=== PATIENT | female | born 1940 | race Hispanic/Latino ===

== ENCOUNTER 2021-12-09 12:27 | Inpatient (IN) | payer MEDICARE, BC ==
[2021-12-09 13:24] LABS: #Monocytes 0.8 thou/uL (0.11-0.59); #Neutrophils 13.1 thou/uL (1.40-6.50); %Eosinophils 0.1 % (0.0-10.0); %Lymphocytes 6.8 % (21.0-51.0); %Monocytes 5.1 % (0.0-10.0); %Neutrophils 87.9 % (42.0-75.0); Hemoglobin 16.3 g/dL (12.0-16.0); Mean Corpuscular HGB CONC 31.1 g/dL (32.0-36.0); Mean Corpuscular Hemoglobin 31.1 pg (27.0-31.0); Mean Platelet Volume 8.9 fL (7.4-10.4); Platelet Count 152 thou/uL (130-400); RBC Distribution Width 13.8 % (11.5-14.5); Red Blood Cell (RBC) Count 5.26 mill/uL (4.20-5.40); White Blood Cell (WBC) Count 14.8 thou/uL (4.8-10.8)
[2021-12-09 13:44] LABS: ALT (SGPT) 9 U/L (8-55); AST (SGOT) 21 U/L (5-34); Albumin 3.3 g/dL (3.4-4.8); Alkaline Phosphatase 72 U/L (40-110); Anion Gap 18 mmol/L (10-20); BUN (Urea Nitrogen) 36 mg/dL (9.8-20.1); Calc. Creatinine Clearance 0 mL/min (70-130); Calcium 9.2 mg/dL (7.8-10.44); Carbon Dioxide 25 mmol/L (23-31); Chloride 100 mmol/L (98-107); Estimated GFR 48; Globulin 3.8 g/dL (2.4-3.5); Glucose 206 mg/dL (83-110); Potassium 3.7 mmol/L (3.5-5.1); Protein, Total 7.1 g/dL (5.8-8.1); Sodium 139 mmol/L (136-145)
[2021-12-09] MEDS ORDERED: Cefepime 2 GM VIAL ONE (14:51)
[2021-12-09] MEDS ORDERED: Vancomycin 1 GM/200 ML BAG ONE (15:03)
[2021-12-09] MEDS ORDERED: Ondansetron ODT 4 MG TAB PO PRN (15:39)
[2021-12-09 17:04] LABS: SARS-CoV-2 NAA Rapid Test DETECTED (NotDetected)
[2021-12-09] MEDS: Lactated Ringer's 1,000 ML IV SCH (17:34)
[2021-12-09] MEDS: metroNIDAZOLE 500 MG in Premix Bag 1 BAG IVPB SCH ×2 (18:42→23:24)
[2021-12-09] MEDS ORDERED: Dexamethasone 6 MG in Sodium Chloride 0.9% 50 ML IVPB SCH (18:45)
[2021-12-09] MEDS ORDERED: Dexamethasone 4 mg/ml Vial SLOW IVP SCH (19:15)
[2021-12-09] MEDS: Gabapentin 300 MG CAP PO SCH (20:48)
[2021-12-10] MEDS ORDERED: Cefepime 2 GM in Sodium Chloride 0.9% 100 ML IVPB SCH (03:00)
[2021-12-10 04:04] LABS: Bacteria/HPF None Seen HPF (None Seen); Bilirubin Negative (Negative); Blood, Urine Negative (Negative); Clarity Clear (Clear); Glucose, Urine (Dipstick) Normal (Negative); Ketone, Urine Negative (Negative); Leukocyte 75 Leu/uL (Negative); Nitrite Negative (Negative); Protein, Urine (Dipstick) 20 mg/dL (Neg-Trace); Specific Gravity, Urine 1.021 (1.002-1.036); Squamous Epithelial 0-3 HPF (0-3); Urobilinogen Normal mg/dL (Less than 2); pH, Urine 5.5 (5.0-9.0)
[2021-12-10 04:05] LABS: Urine Culture Reflex Yes Yes
[2021-12-10] MEDS ORDERED: Cefepime 2 GM VIAL IVPB SCH (05:00)
[2021-12-10 05:35] LABS: #Lymphocytes 0.8 thou/uL (1.20-3.40); #Monocytes 0.3 thou/uL (0.11-0.59); #Neutrophils 18.3 thou/uL (1.40-6.50); %Lymphocytes 4.2 % (21.0-51.0); %Monocytes 1.7 % (0.0-10.0); %Neutrophils 94.1 % (42.0-75.0); Hemoglobin 14.9 g/dL (12.0-16.0); Mean Corpuscular Hemoglobin 30.6 pg (27.0-31.0); Mean Platelet Volume 8.6 fL (7.4-10.4); Platelet Count 157 thou/uL (130-400); RBC Distribution Width 13.7 % (11.5-14.5); Red Blood Cell (RBC) Count 4.89 mill/uL (4.20-5.40); White Blood Cell (WBC) Count 19.4 thou/uL (4.8-10.8)
[2021-12-10] MEDS: Cefepime 2 GM in Sodium Chloride 0.9% 100 ML IVPB SCH ×2 (05:38→17:41)
[2021-12-10] MEDS: metroNIDAZOLE 500 MG in Premix Bag 1 BAG IVPB SCH ×3 (05:40→17:44)
[2021-12-10 05:57] LABS: ALT (SGPT) 8 U/L (8-55); AST (SGOT) 17 U/L (5-34); Alkaline Phosphatase 69 U/L (40-110); Anion Gap 16 mmol/L (10-20); BUN (Urea Nitrogen) 32 mg/dL (9.8-20.1); Bilirubin, Total 2.7 mg/dL (0.2-1.2); Calc. Creatinine Clearance 52 mL/min (70-130); Calcium 8.9 mg/dL (7.8-10.44); Carbon Dioxide 23 mmol/L (23-31); Chloride 106 mmol/L (98-107); Estimated GFR 69; Globulin 3.8 g/dL (2.4-3.5); Glucose 142 mg/dL (83-110); Potassium 3.8 mmol/L (3.5-5.1); Protein, Total 6.8 g/dL (5.8-8.1); Sodium 141 mmol/L (136-145)
[2021-12-10] MEDS: Lactated Ringer's 1,000 ML IV SCH ×3 (06:06→22:21)
[2021-12-10] MEDS: Enoxaparin Sodium 40 MG/0.4 ML SYRINGE SC SCH (09:03)
[2021-12-10] MEDS: Dexamethasone 4 mg/ml Vial SLOW IVP SCH (09:04)
[2021-12-10] MEDS: Atorvastatin Calcium 10 MG TAB PO SCH (09:11)
[2021-12-10] MEDS: Gabapentin 300 MG CAP PO SCH ×3 (09:13→22:21)
[2021-12-10] MEDS ORDERED: Lactated Ringer's 500 ML IV SCH (11:00)
[2021-12-10] MEDS: Vancomycin 1 GM in Premix Bag 1 BAG IVPB SCH (15:21)
[2021-12-10] MEDS ORDERED: Dexamethasone 6 MG in Sodium Chloride 0.9% 50 ML IVPB SCH (18:00)
[2021-12-11] MEDS: metroNIDAZOLE 500 MG in Premix Bag 1 BAG IVPB SCH ×4 (00:48→20:34)
[2021-12-11] MEDS: Cefepime 2 GM in Sodium Chloride 0.9% 100 ML IVPB SCH ×2 (05:30→20:00)
[2021-12-11 06:58] LABS: ALT (SGPT) 8 U/L (8-55); AST (SGOT) 16 U/L (5-34); Albumin 2.5 g/dL (3.4-4.8); Alkaline Phosphatase 59 U/L (40-110); Anion Gap 15 mmol/L (10-20); BUN (Urea Nitrogen) 42 mg/dL (9.8-20.1); Bilirubin, Total 1.5 mg/dL (0.2-1.2); Calc. Creatinine Clearance 56 mL/min (70-130); Calcium 8.6 mg/dL (7.8-10.44); Carbon Dioxide 20 mmol/L (23-31); Chloride 109 mmol/L (98-107); Estimated GFR 75; Globulin 3.2 g/dL (2.4-3.5); Glucose 166 mg/dL (83-110); Potassium 3.8 mmol/L (3.5-5.1); Protein, Total 5.7 g/dL (5.8-8.1); Sodium 140 mmol/L (136-145)
[2021-12-11 07:35] LABS: Hemoglobin 16.1 g/dL (12.0-16.0); Mean Corpuscular Hemoglobin 29.6 pg (27.0-31.0); Mean Corpuscular Volume 98.8 fL (78.0-98.0); Mean Platelet Volume 9.3 fL (7.4-10.4); Platelet Count 129 thou/uL (130-400); RBC Distribution Width 13.8 % (11.5-14.5); Red Blood Cell (RBC) Count 5.44 mill/uL (4.20-5.40); White Blood Cell (WBC) Count 18.7 thou/uL (4.8-10.8)
[2021-12-11 08:13] LABS: #Eosinphils 0.1 thou/uL (0.0-0.7); #Lymphocytes 0.9 thou/uL (1.20-3.40); #Monocytes 0.6 thou/uL (0.11-0.59); #Neutrophils 17.1 thou/uL (1.40-6.50); %Eosinophils 0.3 % (0.0-10.0); %Monocytes 3.4 % (0.0-10.0); %Neutrophils 91.2 % (42.0-75.0); Band 24 % (5-11); Burr Cells SLIGHT = 2-5 cells (100X) (0-1/hpf); Lymphocytes 4 % (21-51); MDiff Complete? YES; Monocytes 4 % (0-10); Neutrophil 68 % (42-75); Platelet Morphology Comment Appears Decreased; Polychromasia SLIGHT = 2-3 cells (100X) (0-2/hpf); RBC Morphology Normal
[2021-12-11] MEDS: Lactated Ringer's 1,000 ML IV SCH ×2 (09:40→17:23)
[2021-12-11] MEDS: Atorvastatin Calcium 10 MG TAB PO SCH (09:40)
[2021-12-11] MEDS: Enoxaparin Sodium 40 MG/0.4 ML SYRINGE SC SCH (09:41)
[2021-12-11] MEDS: Gabapentin 300 MG CAP PO SCH ×3 (09:41→20:35)
[2021-12-11] MEDS: Dexamethasone 4 mg/ml Vial SLOW IVP SCH (09:41)
[2021-12-11] MEDS ORDERED: Glycopyrrolate 0.2 MG/ML 5 ML SYRINGE ONE (10:07)
[2021-12-11] MEDS ORDERED: PROPOFOL 200 MG/20 ML VIAL ONE (10:07)
[2021-12-11] MEDS ORDERED: ePHEDrine Sulfate 50 MG/10 ML VIAL ONE (10:07)
[2021-12-11] MEDS ORDERED: fentaNYL Citrate/PF 100 MCG/2 ML SYRINGE ONE (10:13)
[2021-12-11] MEDS ORDERED: Famotidine/PF 20 mg/2ml Vial ONE (10:13)
[2021-12-11] MEDS ORDERED: Propofol 500 MG/50 ML VIAL ONE ×2 (10:14→10:15)
[2021-12-11] MEDS ORDERED: Ondansetron HCl/PF 4 MG/2 ML Vial IVP PRN (11:04)
[2021-12-11] MEDS ORDERED: Promethazine HCl 25 MG/ML VIAL IVPB PRN (11:04)
[2021-12-11] MEDS ORDERED: Fentanyl 100 MCG/2 ML VIAL ONE (12:01)
[2021-12-11 14:33] LABS: Vancomycin, Trough 12.9 ug/mL
[2021-12-11] MEDS: Vancomycin 1 GM in Premix Bag 1 BAG IVPB SCH (15:03)
[2021-12-12] MEDS: metroNIDAZOLE 500 MG in Premix Bag 1 BAG IVPB SCH ×5 (00:08→23:12)
[2021-12-12] MEDS: Lactated Ringer's 1,000 ML IV SCH ×2 (04:18→15:35)
[2021-12-12] MEDS: Cefepime 2 GM in Sodium Chloride 0.9% 100 ML IVPB SCH ×2 (05:21→17:00)
[2021-12-12 07:01] LABS: Band 1 % (5-11); Hemoglobin 16.2 g/dL (12.0-16.0); Hypochromia SLIGHT = 6-15 cells (100X) (0-5/hpf); Lymphocytes 9 % (21-51); MDiff Complete? YES; Macrocytosis MODERATE=16-30 cells (100X) (0-5/hpf); Mean Corpuscular HGB CONC 30.1 g/dL (32.0-36.0); Mean Corpuscular Hemoglobin 30.7 pg (27.0-31.0); Mean Platelet Volume 9.3 fL (7.4-10.4); Neutrophil 90 % (42-75); Ovalocytes SLIGHT = 2-5 cells (100X) (0-1/hpf); Platelet Count 140 thou/uL (130-400); Platelet Morphology Comment Appears Adequate; Polychromasia SLIGHT = 2-3 cells (100X) (0-2/hpf); Red Blood Cell (RBC) Count 5.29 mill/uL (4.20-5.40); White Blood Cell (WBC) Count 21.1 thou/uL (4.8-10.8)
[2021-12-12] MEDS: Dexamethasone 4 mg/ml Vial SLOW IVP SCH (08:41)
[2021-12-12] MEDS: Atorvastatin Calcium 10 MG TAB PO SCH (08:42)
[2021-12-12] MEDS: Gabapentin 300 MG CAP PO SCH ×3 (08:42→20:46)
[2021-12-12] MEDS: Enoxaparin Sodium 40 MG/0.4 ML SYRINGE SC SCH (08:43)
[2021-12-12] MEDS: Vancomycin 1 GM in Premix Bag 1 BAG IVPB SCH (15:35)
[2021-12-12 20:29] LABS: Albumin 2.6 g/dL (3.4-4.8)
[2021-12-12 20:30] LABS: Chloride 108 mmol/L (98-107); Potassium 4.1 mmol/L (3.5-5.1); Sodium 141 mmol/L (136-145)
[2021-12-12 20:31] LABS: Calcium 8.7 mg/dL (7.8-10.44); Glucose 169 mg/dL (83-110)
[2021-12-12 20:32] LABS: Globulin 2.6 g/dL (2.4-3.5); Protein, Total 5.2 g/dL (5.8-8.1)
[2021-12-12 20:33] LABS: Anion Gap 9 mmol/L (10-20); Carbon Dioxide 28 mmol/L (23-31)
[2021-12-12 20:34] LABS: Alkaline Phosphatase 56 U/L (40-110); Bilirubin, Total 1.3 mg/dL (0.2-1.2)
[2021-12-12 20:35] LABS: Calc. Creatinine Clearance 67 mL/min (70-130); Estimated GFR 76
[2021-12-12 20:36] LABS: BUN (Urea Nitrogen) 40 mg/dL (9.8-20.1)
[2021-12-12 20:37] LABS: AST (SGOT) 18 U/L (5-34)
[2021-12-12 20:38] LABS: ALT (SGPT) 10 U/L (8-55)
[2021-12-13] MEDS: Lactated Ringer's 1,000 ML IV SCH (03:17)
[2021-12-13] MEDS: Cefepime 2 GM in Sodium Chloride 0.9% 100 ML IVPB SCH ×2 (05:19→18:53)
[2021-12-13] MEDS: metroNIDAZOLE 500 MG in Premix Bag 1 BAG IVPB SCH ×4 (05:53→23:10)
[2021-12-13] MEDS: Gabapentin 300 MG CAP PO SCH ×3 (09:37→21:27)
[2021-12-13] MEDS: Atorvastatin Calcium 10 MG TAB PO SCH (09:37)
[2021-12-13] MEDS: Dexamethasone 4 mg/ml Vial SLOW IVP SCH (09:37)
[2021-12-13] MEDS: Enoxaparin Sodium 40 MG/0.4 ML SYRINGE SC SCH (09:38)
[2021-12-13] MEDS ORDERED: Furosemide 20 MG/2 ML VIAL SLOW IVP SCH (11:15)
[2021-12-13] MEDS: Acetaminophen 325 MG TAB PO PRN (11:37)
[2021-12-13] MEDS ORDERED: Morphine 2 MG/ML VIAL SLOW IVP SCH (12:00)
[2021-12-13] MEDS ORDERED: Iopamidol-370 76% 500 ML 1 ML ONE (13:06)
[2021-12-13 14:42] LABS: #Lymphocytes 0.5 thou/uL (1.20-3.40); #Monocytes 0.3 thou/uL (0.11-0.59); #Neutrophils 10.7 thou/uL (1.40-6.50); %Basophils 0.1 % (0.0-1.0); %Lymphocytes 4.3 % (21.0-51.0); %Monocytes 2.4 % (0.0-10.0); %Neutrophils 93.2 % (42.0-75.0); Hemoglobin 15.5 g/dL (12.0-16.0); Mean Corpuscular Hemoglobin 30.8 pg (27.0-31.0); Mean Corpuscular Volume 99.3 fL (78.0-98.0); Mean Platelet Volume 8.7 fL (7.4-10.4); Platelet Count 144 thou/uL (130-400); RBC Distribution Width 13.5 % (11.5-14.5); Red Blood Cell (RBC) Count 5.05 mill/uL (4.20-5.40); White Blood Cell (WBC) Count 11.5 thou/uL (4.8-10.8)
[2021-12-13 15:04] LABS: ALT (SGPT) 11 U/L (8-55); AST (SGOT) 21 U/L (5-34); Albumin 2.7 g/dL (3.4-4.8); Alkaline Phosphatase 58 U/L (40-110); Anion Gap 13 mmol/L (10-20); BUN (Urea Nitrogen) 37 mg/dL (9.8-20.1); Bilirubin, Total 1.6 mg/dL (0.2-1.2); Calc. Creatinine Clearance 67 mL/min (70-130); Calcium 8.8 mg/dL (7.8-10.44); Carbon Dioxide 24 mmol/L (23-31); Chloride 106 mmol/L (98-107); Estimated GFR 75; Globulin 3.2 g/dL (2.4-3.5); Glucose 157 mg/dL (83-110); Potassium 4.2 mmol/L (3.5-5.1); Protein, Total 5.9 g/dL (5.8-8.1); Sodium 139 mmol/L (136-145)
[2021-12-13] MEDS: Vancomycin 1 GM in Premix Bag 1 BAG IVPB SCH (16:22)
[2021-12-13] MEDS: Enoxaparin Sodium 80 MG/0.8 ML SYRINGE SC SCH (21:28)
[2021-12-14 04:52] LABS: #Lymphocytes 0.8 thou/uL (1.20-3.40); #Monocytes 0.7 thou/uL (0.11-0.59); #Neutrophils 10.6 thou/uL (1.40-6.50); %Eosinophils 0.1 % (0.0-10.0); %Lymphocytes 6.4 % (21.0-51.0); %Monocytes 5.9 % (0.0-10.0); %Neutrophils 87.7 % (42.0-75.0); Hemoglobin 14.2 g/dL (12.0-16.0); Mean Corpuscular HGB CONC 31.2 g/dL (32.0-36.0); Mean Corpuscular Hemoglobin 30.8 pg (27.0-31.0); Mean Corpuscular Volume 98.9 fL (78.0-98.0); Mean Platelet Volume 8.6 fL (7.4-10.4); Platelet Count 140 thou/uL (130-400); RBC Distribution Width 13.5 % (11.5-14.5); Red Blood Cell (RBC) Count 4.61 mill/uL (4.20-5.40); White Blood Cell (WBC) Count 12.1 thou/uL (4.8-10.8)
[2021-12-14 05:18] LABS: ALT (SGPT) 7 U/L (8-55); AST (SGOT) 16 U/L (5-34); Albumin 2.5 g/dL (3.4-4.8); Alkaline Phosphatase 51 U/L (40-110); Anion Gap 11 mmol/L (10-20); BUN (Urea Nitrogen) 37 mg/dL (9.8-20.1); Bilirubin, Total 1.4 mg/dL (0.2-1.2); Calc. Creatinine Clearance 71 mL/min (70-130); Calcium 8.5 mg/dL (7.8-10.44); Carbon Dioxide 26 mmol/L (23-31); Chloride 106 mmol/L (98-107); Estimated GFR 80; Globulin 2.6 g/dL (2.4-3.5); Glucose 151 mg/dL (83-110); Potassium 3.9 mmol/L (3.5-5.1); Protein, Total 5.1 g/dL (5.8-8.1); Sodium 139 mmol/L (136-145)
[2021-12-14] MEDS: Cefepime 2 GM in Sodium Chloride 0.9% 100 ML IVPB SCH ×2 (05:25→17:19)
[2021-12-14] MEDS: metroNIDAZOLE 500 MG in Premix Bag 1 BAG IVPB SCH ×4 (05:29→23:55)
[2021-12-14] MEDS: Dexamethasone 4 mg/ml Vial SLOW IVP SCH (10:26)
[2021-12-14] MEDS: Gabapentin 300 MG CAP PO SCH ×3 (10:27→20:58)
[2021-12-14] MEDS: Enoxaparin Sodium 80 MG/0.8 ML SYRINGE SC SCH ×2 (10:28→20:59)
[2021-12-14] MEDS: Atorvastatin Calcium 10 MG TAB PO SCH (10:28)
[2021-12-14] MEDS ORDERED: Furosemide 20 MG/2 ML VIAL SLOW IVP SCH (12:00)
[2021-12-14] MEDS ORDERED: Polyethylene Glycol 3350 17 GM Packet PO SCH (13:15)
[2021-12-14] MEDS: Docusate Sodium 100 MG/10 ML UDCUP PO SCH (20:59)
[2021-12-14] MEDS: Melatonin 3 MG TAB PO PRN (20:59)
[2021-12-15 04:39] LABS: #Monocytes 0.6 thou/uL (0.11-0.59); #Neutrophils 10.5 thou/uL (1.40-6.50); %Eosinophils 0.1 % (0.0-10.0); %Lymphocytes 8.2 % (21.0-51.0); %Monocytes 4.6 % (0.0-10.0); Hemoglobin 14.1 g/dL (12.0-16.0); Mean Corpuscular HGB CONC 31.5 g/dL (32.0-36.0); Mean Corpuscular Volume 98.6 fL (78.0-98.0); Mean Platelet Volume 8.7 fL (7.4-10.4); Platelet Count 157 thou/uL (130-400); RBC Distribution Width 13.4 % (11.5-14.5); Red Blood Cell (RBC) Count 4.55 mill/uL (4.20-5.40)
[2021-12-15 04:55] LABS: ALT (SGPT) 8 U/L (8-55); AST (SGOT) 21 U/L (5-34); Albumin 2.5 g/dL (3.4-4.8); Alkaline Phosphatase 49 U/L (40-110); Anion Gap 11 mmol/L (10-20); BUN (Urea Nitrogen) 36 mg/dL (9.8-20.1); Bilirubin, Total 1.5 mg/dL (0.2-1.2); Calc. Creatinine Clearance 74 mL/min (70-130); Calcium 8.4 mg/dL (7.8-10.44); Carbon Dioxide 30 mmol/L (23-31); Chloride 104 mmol/L (98-107); Estimated GFR 81; Globulin 2.7 g/dL (2.4-3.5); Glucose 160 mg/dL (83-110); Protein, Total 5.2 g/dL (5.8-8.1); Sodium 141 mmol/L (136-145)
[2021-12-15] MEDS: Cefepime 2 GM in Sodium Chloride 0.9% 100 ML IVPB SCH ×2 (05:45→16:57)
[2021-12-15] MEDS: metroNIDAZOLE 500 MG in Premix Bag 1 BAG IVPB SCH ×3 (05:46→16:57)
[2021-12-15] MEDS: Enoxaparin Sodium 80 MG/0.8 ML SYRINGE SC SCH ×3 (09:00→20:38)
[2021-12-15] MEDS ORDERED: Furosemide 20 MG/2 ML VIAL SLOW IVP SCH ×2 (10:00→16:00)
[2021-12-15] MEDS: Acetaminophen 325 MG TAB PO PRN (10:31)
[2021-12-15] MEDS: Docusate Sodium 100 MG/10 ML UDCUP PO SCH ×2 (10:32→20:38)
[2021-12-15] MEDS: Gabapentin 300 MG CAP PO SCH ×3 (10:32→20:38)
[2021-12-15] MEDS: Dexamethasone 4 mg/ml Vial SLOW IVP SCH (10:32)
[2021-12-15] MEDS: Atorvastatin Calcium 10 MG TAB PO SCH (10:33)
[2021-12-15] MEDS: Polyethylene Glycol 3350 17 GM Packet PO SCH (10:33)
[2021-12-15 14:27] LABS: Hemoglobin 13.8 g/dL (12.0-16.0)
[2021-12-15] MEDS: Furosemide 20 MG/2 ML VIAL SLOW IVP SCH (16:57)
[2021-12-15] MEDS: Melatonin 3 MG TAB PO PRN (20:38)
[2021-12-16] MEDS: metroNIDAZOLE 500 MG in Premix Bag 1 BAG IVPB SCH ×4 (00:54→17:36)
[2021-12-16] MEDS: Cefepime 2 GM in Sodium Chloride 0.9% 100 ML IVPB SCH ×2 (06:32→17:06)
[2021-12-16] MEDS: Gabapentin 300 MG CAP PO SCH ×3 (08:47→21:03)
[2021-12-16] MEDS: Dexamethasone 4 mg/ml Vial SLOW IVP SCH (08:47)
[2021-12-16] MEDS: Atorvastatin Calcium 10 MG TAB PO SCH (08:48)
[2021-12-16] MEDS: Docusate Sodium 100 MG/10 ML UDCUP PO SCH ×2 (08:48→21:03)
[2021-12-16] MEDS: Polyethylene Glycol 3350 17 GM Packet PO SCH (08:48)
[2021-12-16 09:05] LABS: #Lymphocytes 1.6 thou/uL (1.20-3.40); #Neutrophils 13.1 thou/uL (1.40-6.50); %Basophils 0.1 % (0.0-1.0); %Eosinophils 0.3 % (0.0-10.0); %Lymphocytes 10.2 % (21.0-51.0); %Monocytes 6.4 % (0.0-10.0); %Neutrophils 82.9 % (42.0-75.0); Hemoglobin 13.1 g/dL (12.0-16.0); Mean Corpuscular HGB CONC 30.8 g/dL (32.0-36.0); Mean Corpuscular Hemoglobin 30.6 pg (27.0-31.0); Mean Corpuscular Volume 99.4 fL (78.0-98.0); Mean Platelet Volume 8.5 fL (7.4-10.4); Platelet Count 158 thou/uL (130-400); RBC Distribution Width 13.2 % (11.5-14.5); Red Blood Cell (RBC) Count 4.29 mill/uL (4.20-5.40); White Blood Cell (WBC) Count 15.8 thou/uL (4.8-10.8)
[2021-12-16] MEDS: Enoxaparin Sodium 80 MG/0.8 ML SYRINGE SC SCH ×2 (09:18→21:03)
[2021-12-16 09:22] LABS: ALT (SGPT) 9 U/L (8-55); AST (SGOT) 21 U/L (5-34); Albumin 2.4 g/dL (3.4-4.8); Alkaline Phosphatase 45 U/L (40-110); Anion Gap 13 mmol/L (10-20); BUN (Urea Nitrogen) 41 mg/dL (9.8-20.1); Bilirubin, Total 1.1 mg/dL (0.2-1.2); Calc. Creatinine Clearance 72 mL/min (70-130); Calcium 8.4 mg/dL (7.8-10.44); Carbon Dioxide 27 mmol/L (23-31); Chloride 105 mmol/L (98-107); Estimated GFR 79; Globulin 2.9 g/dL (2.4-3.5); Glucose 132 mg/dL (83-110); Protein, Total 5.3 g/dL (5.8-8.1); Sodium 141 mmol/L (136-145)
[2021-12-16] MEDS ORDERED: Morphine 2 MG/ML VIAL SLOW IVP SCH (13:15)
[2021-12-16] MEDS: Furosemide 20 MG/2 ML VIAL SLOW IVP SCH (17:06)
[2021-12-16] MEDS: Melatonin 3 MG TAB PO PRN (21:03)
[2021-12-16] MEDS: Acetaminophen 325 MG TAB PO PRN (21:29)
[2021-12-17] MEDS: metroNIDAZOLE 500 MG in Premix Bag 1 BAG IVPB SCH ×4 (00:31→19:43)
[2021-12-17] MEDS ORDERED: Lactated Ringer's 500 ML IV SCH ×2 (01:30→04:45)
[2021-12-17 04:29] LABS: #Eosinphils 0.1 thou/uL (0.0-0.7); #Lymphocytes 2.1 thou/uL (1.20-3.40); #Monocytes 0.9 thou/uL (0.11-0.59); %Basophils 0.2 % (0.0-1.0); %Eosinophils 0.4 % (0.0-10.0); %Lymphocytes 14.7 % (21.0-51.0); %Monocytes 6.5 % (0.0-10.0); %Neutrophils 78.2 % (42.0-75.0); Hemoglobin 9.4 g/dL (12.0-16.0); Mean Corpuscular HGB CONC 32.8 g/dL (32.0-36.0); Mean Corpuscular Hemoglobin 32.4 pg (27.0-31.0); Mean Corpuscular Volume 98.9 fL (78.0-98.0); Mean Platelet Volume 8.2 fL (7.4-10.4); Platelet Count 162 thou/uL (130-400); RBC Distribution Width 13.1 % (11.5-14.5); White Blood Cell (WBC) Count 14.1 thou/uL (4.8-10.8)
[2021-12-17 04:41] LABS: ALT (SGPT) 9 U/L (8-55); AST (SGOT) 13 U/L (5-34); Alkaline Phosphatase 33 U/L (40-110); Anion Gap 12 mmol/L (10-20); BUN (Urea Nitrogen) 53 mg/dL (9.8-20.1); Bilirubin, Total 0.8 mg/dL (0.2-1.2); Calc. Creatinine Clearance 58 mL/min (70-130); Calcium 7.9 mg/dL (7.8-10.44); Carbon Dioxide 26 mmol/L (23-31); Chloride 106 mmol/L (98-107); Estimated GFR 61; Globulin 2.1 g/dL (2.4-3.5); Glucose 133 mg/dL (83-110); Potassium 3.6 mmol/L (3.5-5.1); Protein, Total 4.1 g/dL (5.8-8.1); Sodium 140 mmol/L (136-145)
[2021-12-17] MEDS ORDERED: Lactated Ringer's 1,000 ML IV SCH (07:15)
[2021-12-17] MEDS ORDERED: Xylocaine 1% w/ Epi 1:100K 10 ML VIAL ONE (09:17)
[2021-12-17] MEDS ORDERED: Fentanyl 100 MCG/2 ML VIAL SLOW IVP PRN (09:27)
[2021-12-17] MEDS ORDERED: Lidocaine 1% w/Epinephrine 1:200K 30 ML VIAL FS SCH ×2 (09:45→18:45)
[2021-12-17] MEDS: Polyethylene Glycol 3350 17 GM Packet PO SCH (10:15)
[2021-12-17] MEDS ORDERED: Hydrocortisone Sod Succ/PF 100 mg/2 ml Vial IVP SCH ×2 (10:15→13:15)
[2021-12-17] MEDS: Docusate Sodium 100 MG/10 ML UDCUP PO SCH ×2 (10:15→20:40)
[2021-12-17] MEDS: Gabapentin 300 MG CAP PO SCH ×3 (10:15→20:40)
[2021-12-17] MEDS: Atorvastatin Calcium 10 MG TAB PO SCH (10:15)
[2021-12-17] MEDS: Pantoprazole 40 MG VIAL IVP SCH ×2 (10:16→20:40)
[2021-12-17] MEDS ORDERED: Norepinephrine 4 MG/4 ML VIAL ONE (11:28)
[2021-12-17] MEDS ORDERED: NOREPINEPHRINE 8 MG/250 ML-D5W 250 ML IVPB SCH (14:00)
[2021-12-17] MEDS ORDERED: Fentanyl 100 MCG/2 ML VIAL ONE ×2 (18:43→20:12)
[2021-12-17] MEDS ORDERED: Lidocaine 1% w/Epinephrine 1:100K 30 ML VIAL FS SCH (18:45)
[2021-12-17] MEDS: Hydrocortisone Sod Succ/PF 100 mg/2 ml Vial IVP SCH (19:42)
[2021-12-17] MEDS: Furosemide 20 MG/2 ML VIAL SLOW IVP SCH (19:48)
[2021-12-17 21:45] LABS: Hemoglobin 10.1 g/dL (12.0-16.0)
[2021-12-18] MEDS: metroNIDAZOLE 500 MG in Premix Bag 1 BAG IVPB SCH ×4 (00:11→17:30)
[2021-12-18] MEDS: Hydrocortisone Sod Succ/PF 100 mg/2 ml Vial IVP SCH ×4 (00:11→17:30)
[2021-12-18 06:22] LABS: ALT (SGPT) 8 U/L (8-55); AST (SGOT) 20 U/L (5-34); Albumin 2.9 g/dL (3.4-4.8); Alkaline Phosphatase 33 U/L (40-110); Anion Gap 15 mmol/L (10-20); BUN (Urea Nitrogen) 56 mg/dL (9.8-20.1); Bilirubin, Total 2.1 mg/dL (0.2-1.2); Calc. Creatinine Clearance 60 mL/min (70-130); Calcium 8.3 mg/dL (7.8-10.44); Carbon Dioxide 27 mmol/L (23-31); Chloride 107 mmol/L (98-107); Estimated GFR 70; Globulin 1.7 g/dL (2.4-3.5); Glucose 157 mg/dL (83-110); Potassium 3.6 mmol/L (3.5-5.1); Protein, Total 4.6 g/dL (5.8-8.1); Sodium 145 mmol/L (136-145)
[2021-12-18 06:46] LABS: Hemoglobin 9.5 g/dL (12.0-16.0); Mean Corpuscular Volume 94.1 fL (78.0-98.0); Mean Platelet Volume 8.3 fL (7.4-10.4); Platelet Count 172 thou/uL (130-400); RBC Distribution Width 13.3 % (11.5-14.5); Red Blood Cell (RBC) Count 3.06 mill/uL (4.20-5.40); White Blood Cell (WBC) Count 17.8 thou/uL (4.8-10.8)
[2021-12-18 07:17] LABS: Band 6 % (5-11); Burr Cells SLIGHT = 2-5 cells (100X) (0-1/hpf); Lymphocytes 2 % (21-51); MDiff Complete? YES; Metamyelocyte 1 % (0-0); Monocytes 5 % (0-10); Myelocyte 1 % (0-0); Neutrophil 84 % (42-75); Platelet Morphology Comment Appears Adequate; Polychromasia MODERATE = 3-4 cells (100X) (0-2/hpf); Reactive Lymphocytes 1 % (0-10)
[2021-12-18] MEDS: Pantoprazole 40 MG VIAL IVP SCH ×2 (08:32→19:50)
[2021-12-18] MEDS: Gabapentin 300 MG CAP PO SCH ×3 (08:33→19:49)
[2021-12-18] MEDS: Docusate Sodium 100 MG/10 ML UDCUP PO SCH ×3 (08:34→19:53)
[2021-12-18] MEDS: Atorvastatin Calcium 10 MG TAB PO SCH (08:34)
[2021-12-18] MEDS: Polyethylene Glycol 3350 17 GM Packet PO SCH (08:34)
[2021-12-18] MEDS ORDERED: Calcium Chloride 1 GM/10 ML Abboject SYRINGE IVP SCH (11:30)
[2021-12-18] MEDS: Midodrine HCl 5 MG TAB PO SCH (19:49)
[2021-12-18] MEDS: Melatonin 3 MG TAB PO PRN (19:51)
[2021-12-19] MEDS: metroNIDAZOLE 500 MG in Premix Bag 1 BAG IVPB SCH ×5 (00:08→23:05)
[2021-12-19] MEDS: Hydrocortisone Sod Succ/PF 100 mg/2 ml Vial IVP SCH ×2 (00:08→05:08)
[2021-12-19 05:00] LABS: ALT (SGPT) 9 U/L (8-55); AST (SGOT) 17 U/L (5-34); Albumin 2.5 g/dL (3.4-4.8); Alkaline Phosphatase 33 U/L (40-110); Anion Gap 9 mmol/L (10-20); BUN (Urea Nitrogen) 61 mg/dL (9.8-20.1); Bilirubin, Total 0.9 mg/dL (0.2-1.2); Calc. Creatinine Clearance 50 mL/min (70-130); Calcium 8.7 mg/dL (7.8-10.44); Carbon Dioxide 29 mmol/L (23-31); Chloride 109 mmol/L (98-107); Estimated GFR 57; Globulin 1.6 g/dL (2.4-3.5); Glucose 165 mg/dL (83-110); Potassium 3.3 mmol/L (3.5-5.1); Protein, Total 4.1 g/dL (5.8-8.1); Sodium 144 mmol/L (136-145)
[2021-12-19 05:10] LABS: Band 20 % (5-11); Hemoglobin 6.5 g/dL (12.0-16.0); Hypochromia SLIGHT = 6-15 cells (100X) (0-5/hpf); Lymphocytes 4 % (21-51); MDiff Complete? YES; Mean Corpuscular HGB CONC 33.6 g/dL (32.0-36.0); Mean Corpuscular Hemoglobin 31.7 pg (27.0-31.0); Mean Corpuscular Volume 94.4 fL (78.0-98.0); Mean Platelet Volume 7.7 fL (7.4-10.4); Monocytes 10 % (0-10); Neutrophil 66 % (42-75); Nucleated RBC 1 % (0); Platelet Count 164 thou/uL (130-400); Platelet Morphology Comment Appears Adequate; RBC Distribution Width 13.9 % (11.5-14.5); Red Blood Cell (RBC) Count 2.06 mill/uL (4.20-5.40); White Blood Cell (WBC) Count 16.6 thou/uL (4.8-10.8)
[2021-12-19] MEDS ORDERED: Potassium Bicarbonate/Cit Ac 20 MEQ TAB PO SCH (07:30)
[2021-12-19 08:34] LABS: Mean Corpuscular Hemoglobin 31.3 pg (27.0-31.0); Mean Corpuscular Volume 94.6 fL (78.0-98.0); Mean Platelet Volume 7.8 fL (7.4-10.4); Platelet Count 169 thou/uL (130-400); RBC Distribution Width 13.6 % (11.5-14.5); Red Blood Cell (RBC) Count 2.23 mill/uL (4.20-5.40); White Blood Cell (WBC) Count 18.1 thou/uL (4.8-10.8)
[2021-12-19] MEDS: Gabapentin 300 MG CAP PO SCH ×3 (09:25→20:57)
[2021-12-19] MEDS: Atorvastatin Calcium 10 MG TAB PO SCH (09:26)
[2021-12-19] MEDS: predniSONE 5 MG TAB PO SCH (09:30)
[2021-12-19] MEDS: Midodrine HCl 5 MG TAB PO SCH ×2 (09:31→20:57)
[2021-12-19] MEDS: Polyethylene Glycol 3350 17 GM Packet PO SCH (09:31)
[2021-12-19] MEDS: Docusate Sodium 100 MG/10 ML UDCUP PO SCH ×2 (09:31→21:32)
[2021-12-19] MEDS: Pantoprazole 40 MG VIAL IVP SCH ×2 (09:32→20:59)
[2021-12-19] MEDS ORDERED: Morphine 4 MG/ML VIAL ONE (11:09)
[2021-12-19 17:10] LABS: Hemoglobin 8.7 g/dL (12.0-16.0)
[2021-12-19] MEDS: Acetaminophen 325 MG TAB PO PRN (21:14)
[2021-12-20 05:48] LABS: ALT (SGPT) 10 U/L (8-55); AST (SGOT) 17 U/L (5-34); Albumin 2.6 g/dL (3.4-4.8); Alkaline Phosphatase 37 U/L (40-110); Anion Gap 12 mmol/L (10-20); BUN (Urea Nitrogen) 54 mg/dL (9.8-20.1); Bilirubin, Total 1.3 mg/dL (0.2-1.2); Calc. Creatinine Clearance 62 mL/min (70-130); Calcium 8.8 mg/dL (7.8-10.44); Carbon Dioxide 26 mmol/L (23-31); Chloride 111 mmol/L (98-107); Estimated GFR 73; Globulin 1.9 g/dL (2.4-3.5); Glucose 145 mg/dL (83-110); Potassium 3.9 mmol/L (3.5-5.1); Protein, Total 4.5 g/dL (5.8-8.1); Sodium 145 mmol/L (136-145)
[2021-12-20 07:18] LABS: Hemoglobin 8.6 g/dL (12.0-16.0); Mean Corpuscular HGB CONC 33.8 g/dL (32.0-36.0); Mean Corpuscular Volume 94.8 fL (78.0-98.0); Platelet Count 164 thou/uL (130-400); RBC Distribution Width 13.4 % (11.5-14.5); Red Blood Cell (RBC) Count 2.68 mill/uL (4.20-5.40)
[2021-12-20 08:33] LABS: Band 1 % (5-11); Eosinophils 1 % (0-10); Lymphocytes 12 % (21-51); MDiff Complete? YES; Metamyelocyte 1 % (0-0); Monocytes 5 % (0-10); Neutrophil 80 % (42-75); Nucleated RBC 4 % (0); Platelet Morphology Comment Appears Adequate; Polychromasia MODERATE = 3-4 cells (100X) (0-2/hpf)
[2021-12-20] MEDS: Morphine 2 MG/ML VIAL SLOW IVP PRN (09:07)
[2021-12-20] MEDS: predniSONE 5 MG TAB PO SCH (09:38)
[2021-12-20] MEDS: Gabapentin 300 MG CAP PO SCH ×3 (09:39→20:52)
[2021-12-20] MEDS: Polyethylene Glycol 3350 17 GM Packet PO SCH (09:39)
[2021-12-20] MEDS: Docusate Sodium 100 MG/10 ML UDCUP PO SCH ×2 (09:39→19:13)
[2021-12-20] MEDS: Midodrine HCl 5 MG TAB PO SCH ×2 (09:39→20:52)
[2021-12-20] MEDS: Atorvastatin Calcium 10 MG TAB PO SCH (09:39)
[2021-12-20 12:14] VITALS: BMI 31.6
[2021-12-20 13:10] LABS: Bilirubin Negative (Negative); Blood, Urine Negative (Negative); Clarity Clear (Clear); Glucose, Urine (Dipstick) Normal (Negative); Ketone, Urine Trace mg/dL (Negative); Leukocyte 75 Leu/uL (Negative); Nitrite Negative (Negative); Protein, Urine (Dipstick) 30 mg/dL (Neg-Trace); RBC/HPF 0-3 HPF (0-3); Specific Gravity, Urine 1.023 (1.002-1.036); Squamous Epithelial 0-3 HPF (0-3); Urobilinogen Normal mg/dL (Less than 2); pH, Urine 5.5 (5.0-9.0)
[2021-12-20 13:11] LABS: Bacteria/HPF 1+ HPF (None Seen)
[2021-12-20 13:12] LABS: Urine Culture Reflex Yes Yes
[2021-12-20] MEDS: Melatonin 3 MG TAB PO PRN (20:52)
[2021-12-21] MEDS: Morphine 2 MG/ML VIAL SLOW IVP PRN (02:39)
[2021-12-21 06:27] LABS: ALT (SGPT) 12 U/L (8-55); AST (SGOT) 16 U/L (5-34); Albumin 2.9 g/dL (3.4-4.8); Alkaline Phosphatase 43 U/L (40-110); Anion Gap 11 mmol/L (10-20); BUN (Urea Nitrogen) 62 mg/dL (9.8-20.1); Bilirubin, Total 1.2 mg/dL (0.2-1.2); Calc. Creatinine Clearance 46 mL/min (70-130); Calcium 8.9 mg/dL (7.8-10.44); Carbon Dioxide 26 mmol/L (23-31); Chloride 108 mmol/L (98-107); Estimated GFR 47; Globulin 1.9 g/dL (2.4-3.5); Glucose 188 mg/dL (83-110); Potassium 4.2 mmol/L (3.5-5.1); Protein, Total 4.8 g/dL (5.8-8.1); Sodium 141 mmol/L (136-145)
[2021-12-21 06:30] LABS: Band 3 % (5-11); Hemoglobin 9.7 g/dL (12.0-16.0); Lymphocytes 8 % (21-51); MDiff Complete? YES; Mean Corpuscular HGB CONC 33.8 g/dL (32.0-36.0); Mean Corpuscular Hemoglobin 32.4 pg (27.0-31.0); Mean Corpuscular Volume 95.9 fL (78.0-98.0); Mean Platelet Volume 7.9 fL (7.4-10.4); Metamyelocyte 1 % (0-0); Monocytes 4 % (0-10); Myelocyte 2 % (0-0); Neutrophil 82 % (42-75); Nucleated RBC 14 % (0); Platelet Count 156 thou/uL (130-400); Polychromasia MODERATE = 3-4 cells (100X) (0-2/hpf); RBC Distribution Width 14.3 % (11.5-14.5); White Blood Cell (WBC) Count 23.1 thou/uL (4.8-10.8)
[2021-12-21] MEDS: Gabapentin 300 MG CAP PO SCH ×3 (08:28→21:04)
[2021-12-21] MEDS: Docusate Sodium 100 MG/10 ML UDCUP PO SCH ×2 (08:30→19:26)
[2021-12-21] MEDS: Midodrine HCl 5 MG TAB PO SCH ×2 (08:30→21:05)
[2021-12-21] MEDS: predniSONE 5 MG TAB PO SCH ×2 (08:30→08:54)
[2021-12-21] MEDS: Atorvastatin Calcium 10 MG TAB PO SCH (08:30)
[2021-12-21] MEDS: Polyethylene Glycol 3350 17 GM Packet PO SCH (08:31)
[2021-12-21] MEDS ORDERED: Lactated Ringer's 1,000 ML IV SCH (09:15)
[2021-12-21] MEDS: Vancomycin 1 GM in Premix Bag 1 BAG IVPB SCH (11:10)
[2021-12-21] MEDS: Cefepime 1 GM in Sodium Chloride 0.9% 100 ML IVPB SCH (21:00)
[2021-12-21] MEDS: Melatonin 3 MG TAB PO PRN (21:04)
[2021-12-21] MEDS: Acetaminophen 325 MG TAB PO PRN (21:05)
[2021-12-22] MEDS: Cefepime 1 GM in Sodium Chloride 0.9% 100 ML IVPB SCH ×2 (09:11→20:30)
[2021-12-22] MEDS: Gabapentin 300 MG CAP PO SCH ×3 (09:12→20:29)
[2021-12-22] MEDS: Midodrine HCl 5 MG TAB PO SCH ×2 (09:13→20:28)
[2021-12-22] MEDS: predniSONE 5 MG TAB PO SCH (09:13)
[2021-12-22] MEDS: Atorvastatin Calcium 10 MG TAB PO SCH (09:13)
[2021-12-22] MEDS: Polyethylene Glycol 3350 17 GM Packet PO SCH (09:14)
[2021-12-22] MEDS: Docusate Sodium 100 MG/10 ML UDCUP PO SCH ×2 (09:14→20:28)
[2021-12-22] MEDS ORDERED: Furosemide 20 MG/2 ML VIAL SLOW IVP SCH ×2 (09:45→17:00)
[2021-12-22 10:13] LABS: Albumin 2.9 g/dL (3.4-4.8)
[2021-12-22 10:14] LABS: Chloride 107 mmol/L (98-107); Potassium 4.4 mmol/L (3.5-5.1); Sodium 140 mmol/L (136-145)
[2021-12-22 10:15] LABS: Calcium 8.9 mg/dL (7.8-10.44); Glucose 164 mg/dL (83-110)
[2021-12-22 10:16] LABS: Globulin 2.1 g/dL (2.4-3.5)
[2021-12-22 10:17] LABS: Anion Gap 12 mmol/L (10-20); Carbon Dioxide 25 mmol/L (23-31)
[2021-12-22 10:18] LABS: Alkaline Phosphatase 39 U/L (40-110)
[2021-12-22 10:19] LABS: BUN (Urea Nitrogen) 62 mg/dL (9.8-20.1); Calc. Creatinine Clearance 56 mL/min (70-130); Estimated GFR 56
[2021-12-22 10:21] LABS: ALT (SGPT) 12 U/L (8-55); AST (SGOT) 16 U/L (5-34)
[2021-12-22 10:27] LABS: Band 1 % (5-11); Eosinophils 2 % (0-10); Helmet Cells SLIGHT = 2-5 cells (100X) (0-1/hpf); Hemoglobin 9.8 g/dL (12.0-16.0); Lymphocytes 10 % (21-51); MDiff Complete? YES; Mean Corpuscular HGB CONC 33.7 g/dL (32.0-36.0); Mean Corpuscular Hemoglobin 32.5 pg (27.0-31.0); Mean Corpuscular Volume 96.6 fL (78.0-98.0); Monocytes 2 % (0-10); Neutrophil 85 % (42-75); Nucleated RBC 9 % (0); Ovalocytes SLIGHT = 2-5 cells (100X) (0-1/hpf); Platelet Count 122 thou/uL (130-400); Platelet Morphology Comment Appears Decreased; Polychromasia MODERATE = 3-4 cells (100X) (0-2/hpf); RBC Distribution Width 14.6 % (11.5-14.5); Red Blood Cell (RBC) Count 3.01 mill/uL (4.20-5.40); Tear Drops SLIGHT = 2-5 cells (100X) (0-1/hpf); White Blood Cell (WBC) Count 22.7 thou/uL (4.8-10.8)
[2021-12-22] MEDS: Vancomycin 1 GM in Premix Bag 1 BAG IVPB SCH (10:44)
[2021-12-22] MEDS: Melatonin 3 MG TAB PO PRN (23:28)
[2021-12-23] MEDS ORDERED: predniSONE 5 MG TAB PO SCH (08:00)
[2021-12-23] MEDS: Gabapentin 300 MG CAP PO SCH ×2 (08:49→14:52)
[2021-12-23] MEDS: Midodrine HCl 5 MG TAB PO SCH (08:49)
[2021-12-23] MEDS: Atorvastatin Calcium 10 MG TAB PO SCH (08:49)
[2021-12-23 08:50] VITALS: BP 118/80; TEMP 97.1
[2021-12-23] MEDS: Cefepime 1 GM in Sodium Chloride 0.9% 100 ML IVPB SCH (08:50)
[2021-12-23] MEDS: Docusate Sodium 100 MG/10 ML UDCUP PO SCH (08:50)
[2021-12-23] MEDS: Polyethylene Glycol 3350 17 GM Packet PO SCH (08:50)
[2021-12-23 10:33] LABS: Vancomycin, Trough 17.8 ug/mL
[2021-12-23] MEDS: Morphine 2 MG/ML VIAL SLOW IVP PRN (10:39)
[2021-12-23 10:46] LABS: Hemoglobin 9.8 g/dL (12.0-16.0); Mean Corpuscular HGB CONC 32.2 g/dL (32.0-36.0); Mean Corpuscular Hemoglobin 32.1 pg (27.0-31.0); Mean Corpuscular Volume 99.8 fL (78.0-98.0); Mean Platelet Volume 8.2 fL (7.4-10.4); Platelet Count 107 thou/uL (130-400); RBC Distribution Width 18.8 % (11.5-14.5); Red Blood Cell (RBC) Count 3.06 mill/uL (4.20-5.40)
[2021-12-23 11:12] LABS: ALT (SGPT) 13 U/L (8-55); AST (SGOT) 16 U/L (5-34); Alkaline Phosphatase 48 U/L (40-110); Anion Gap 13 mmol/L (10-20); BUN (Urea Nitrogen) 62 mg/dL (9.8-20.1); Bilirubin, Total 1.2 mg/dL (0.2-1.2); Calc. Creatinine Clearance 53 mL/min (70-130); Calcium 8.8 mg/dL (7.8-10.44); Carbon Dioxide 24 mmol/L (23-31); Chloride 107 mmol/L (98-107); Estimated GFR 52; Glucose 180 mg/dL (83-110); Potassium 4.2 mmol/L (3.5-5.1); Sodium 140 mmol/L (136-145)
[2021-12-23 11:26] LABS: Anisocytosis SLIGHT = 6-15 cells (100X) (0-5/hpf); Band 2 % (5-11); Eosinophils 1 % (0-10); Lymphocytes 7 % (21-51); MDiff Complete? YES; Metamyelocyte 1 % (0-0); Monocytes 4 % (0-10); Myelocyte 1 % (0-0); Neutrophil 84 % (42-75); Nucleated RBC 20 % (0); Ovalocytes SLIGHT = 2-5 cells (100X) (0-1/hpf); Platelet Morphology Comment Appears Decreased; Polychromasia MODERATE = 3-4 cells (100X) (0-2/hpf); White Blood Cell (WBC) Count 17.3 thou/uL (4.8-10.8)
== END 2021-12-23 21:15 | DRG 853 ==
LOC: ERS 12:27 → EEVIPCON 15:10 → SURG B 15:10 → SURG A 12-11 11:19 → 2NO 12-11 12:43 → IMCU/EMU 12-17 09:26 → CCU 12-17 12:13 → T4-A 12-19 13:35
PROVIDERS: ADMIT Student in an Organized Health Care Education/Training Program; ATTEND Student in an Organized Health Care Education/Training Program
PROC: 3E03329 Introduction of Other Anti-infective into Peripheral Vein, Percutaneous Approach (ICD-10-PCS; 2021-12-09)
PROC: 8E0ZXY6 Isolation (ICD-10-PCS; 2021-12-09)
PROC: 0KBP0ZZ Excision of Left Hip Muscle, Open Approach (ICD-10-PCS; principal; 2021-12-11)
PROC: 0KBN0ZZ Excision of Right Hip Muscle, Open Approach (ICD-10-PCS; 2021-12-11)
PROC: 0W3K0ZZ Control Bleeding in Upper Back, Open Approach (ICD-10-PCS; 2021-12-17)
PROC: 30233N1 Transfusion of Nonautologous Red Blood Cells into Peripheral Vein, Percutaneous Approach (ICD-10-PCS; 2021-12-17)
PROC: 0W993ZZ Drainage of Right Pleural Cavity, Percutaneous Approach (ICD-10-PCS; 2021-12-17)
DX: A41.89 Other specified sepsis (principal); L89.154 Pressure ulcer of sacral region, stage 4; U07.1 COVID-19; J96.01 Acute respiratory failure with hypoxia; J12.82 Pneumonia due to coronavirus disease 2019; I26.09 Other pulmonary embolism with acute cor pulmonale; R57.1 Hypovolemic shock; L03.312 Cellulitis of back [any part except buttock and flank]; I96 Gangrene, not elsewhere classified; I82.623 Acute embolism and thrombosis of deep veins of upper extremity, bilateral; J93.9 Pneumothorax, unspecified; D68.32 Hemorrhagic disorder due to extrinsic circulating anticoagulants; D62 Acute posthemorrhagic anemia; Z66 Do not resuscitate; Z51.5 Encounter for palliative care; I10 Essential (primary) hypertension; E78.5 Hyperlipidemia, unspecified; R65.20 Severe sepsis without septic shock; Z96.653 Presence of artificial knee joint, bilateral; T45.515A Adverse effect of anticoagulants, initial encounter; E87.6 Hypokalemia; Z74.01 Bed confinement status; Z88.0 Allergy status to penicillin; Z79.899 Other long term (current) drug therapy; Z89.612 Acquired absence of left leg above knee; Z89.611 Acquired absence of right leg above knee; Z90.49 Acquired absence of other specified parts of digestive tract
CPT/HCPCS: 36415; 36416; 36430; 71045; 71275; 72195; 74176; 76705; 80053; 80202; 81001; 82533; 82607; 83605; 83880; 84145; 85025; 85652; 86140; 86850; 86900; 86901; 87040; 87076; 87086; 87149; 88304; 93005; 93010; 93306; 93970; 96374; 96375; 97139; C9113; J0692; J1100; J1650; J1720; J1940; J2270; J2704; J3010; J3370; J3490; J7120; J7512; P9016; P9045; Q9967; S0028